=== PATIENT | female | born 1985 | race Two or more races ===

== ENCOUNTER 2025-01-19 08:59 | Emergency (ER) | payer MEDICAID, SELFPAY ==
[2025-01-19 09:57] VITALS: BP 134/83; PULSE 89; RESP 18; TEMP 36.7; O2SAT 99; BMI 42.1
--- NOTE | 2025-01-19 09:59 | XR_ITS ---
Examination: OB Transvaginal ultrasound of the pelvis, complete Technique: Transvaginal sonographic images pelvis performed using faith scale imaging Exam date and time: January 19, 2025 at 1027 hrs. Indications: Vaginal bleeding beginning 4 days ago Findings: Uterus 12.0 x 6.2 x 7.1 cm Intrauterine gestational sac 1.3 cm corresponds to 6 weeks 1 day gestational age No pole No cardiac activity Right ovary 3.2 x 2.4 x 3.2 cm arterial flow 10 mm follicle Left ovary obscured by bowel gas Impression: Empty intrauterine gestational sac 1.3 cm corresponds to 6 weeks 1 day gestational age No pole, no cardiac activity Recommend short-term follow-up transvaginal pelvic sonography to exclude embryonic demise.
[2025-01-19 11:21] LABS: Basophils # (Auto) 0.1 Thou/mm3 (0.0-0.2); Basophils % (Auto) 1 % (0-2.5); Eosinophils # (Auto) 0.1 Thou/mm3 (0.0-0.5); Eosinophils % (Auto) 1 % (0-10); Hematocrit 43.4 % (36.0-46.0); Hemoglobin 14.4 g/dL (12.0-16.0); Immature Granulocytes % (Auto) 0 % (0-0); Immature Granulocytes Auto 0.05 Thou/mm3 (0.00-0.00); Lymphocytes # (Auto) 2.9 Thou/mm3 (1.0-4.8); Lymphocytes % (Auto) 24 % (10-50); Mean Corpuscular HGB Conc 33.2 g/dl (31.0-37.0); Mean Corpuscular Hemoglobin 28.2 pg (25.0-35.0); Mean Corpuscular Volume 85 fL (80-100); Monocytes # (Auto) 0.6 Thou/mm3 (0.0-0.8); Monocytes % (Auto) 5 % (0-12); Neutrophils # (Auto) 8.1 Thou/mm3 (1.8-7.7); Neutrophils % (Auto) 68 % (37-80); Nucleated Red Blood Cell % 0 /100 WBC (0); Platelet Count 414 Thou/mm3 (140-440); RDW Standard Deviation 44.1 fL (36.4-46.3); White Blood Count 11.9 Thou/mm3 (3.6-11.0)
[2025-01-19 11:53] LABS: Alanine Aminotransferase 24 U/L (10-49); Albumin, Serum 4.5 gm/dL (3.5-5.0); Albumin/Globulin Ratio 1.2 (1.2-2.2); Alkaline Phosphatase 81 U/L (46-116); Anion Gap 10 (7-16); Aspartate Amino Transferase 19 U/L (0-34); BUN/Creatinine Ratio 14 Ratio (12-20); Beta HCG,Quantitative 3186 mIU/mL (<5.0); Bilirubin,Total 0.8 mg/dL (0.3-1.2); Blood Urea Nitrogen 10 mg/dL (9-23); Calcium 9.9 mg/dL (8.3-10.6); Calcium (Corrected) 9.9 mg/dL (8.5-10.1); Carbon Dioxide 25.2 mMol/L (20.0-31.0); Chloride 102 mMol/L (98-107); Creatinine (Component) 0.7 mg/dL (0.6-1.3); Estimated Creatinine Clearance 131.9 mL/min (>60); Globulin 3.7 gm/dL (2.3-3.5); Glucose 207 mg/dL (74-106); Osmolality,Calculated 278 (275-295); Potassium 3.9 mMol/L (3.4-5.1); Sodium 137 mMol/L (136-145); Total Protein 8.2 gm/dL (5.7-8.2); eGFR > 60 See Note
--- NOTE | 2025-01-19 16:41 | PD.EDVAGBL ---
ED OB Contraction Preg RMI/HPI General Chief complaint: Vaginal Bleeding Stated complaint: MISCARRIAGE FOLLOW UP Time Seen by Provider: 01/19/25 09:29 Arrival date/time: 01/19/25 08:59 39-year-old female G7, presents to the emergency department today complains of vaginal spotting and pelvic pain patient reports she has been to the ER at [facility] patient reports that she has had 2 hCGs which are trending downward patient reports that she came here for further evaluation patient reports that she has no CLERK OF SUPERIOR COURT Limitations: no limitations Related Data Home Medications ?Medication ?Instructions ?Recorded ?Confirmed vits no.124-ferrous fum 1 tab PO QDAY 08/21/20 08/30/20 27 mg iron-folic acid 800 mcg tablet ( Vitamin) Previous Rx's ?Medication ?Instructions ?Recorded hydrocodone 5 mg-acetaminophen 325 1 tab PO Q8H PRN pain #15 tabs 01/06/23 mg tablet Allergies Allergy/AdvReac Type Severity Reaction Status Date / Time No Known Allergies Allergy Verified 04/06/22 15:48 Review of Systems Review of Systems Systems Reviewed: All systems reviewed, normal except as documented Constitutional Constitutional: Reports system reviewed and no additional complaints, except as documented, Denies fever(s) and Denies headache(s) Eyes Eyes: Reports system reviewed and no additional complaints, except as documented and Denies blurry vision ENT Ears, Nose, Mouth, and Throat: Reports system reviewed and no additional complaints, except as documented, Denies headache(s), Denies nasal congestion and Denies nasal discharge Cardiovascular Cardiovascular: Reports system reviewed and no additional complaints, except as documented, Denies chest pain and Denies dyspnea Respiratory Respiratory: Reports system reviewed and no additional complaints, except as documented, Denies chest congestion, Denies cough and Denies dyspnea Gastrointestinal Gastrointestinal: Reports system reviewed and no additional complaints, except as documented and Denies abdominal pain Genitourinary Genitourinary: Reports system reviewed and no additional complaints, except as documented and Reports abnormal vaginal bleeding Integumentary/Breasts Skin/Breast: Reports system reviewed and no additional complaints, except as documented and Denies rash Neurologic Neurologic: Reports system reviewed and no additional complaints, except as documented, Reports as per HPI and Denies headache(s) Past Medical History Past Medical History NEUROLOGIC: Negative Neurological Disorders or Seizures CARDIAC: Negative Cardiac Disorders or Congestive Heart Failure RESPIRATORY: Negative Chronic Obstructive Pulmonary Disease (COPD) or Asthma GASTROINTESTINAL: Negative Gastrointestinal Disorders, Hepatitis or Colorectal Cancer GENITOURINARY: Negative Genitourinary Disorders, Renal Disease or Prostate Cancer REPRODUCTIVE: Negative Breast Cancer or Testicular Cancer MUSCULOSKELETAL: Negative Musculoskeletal Disorders or Bone Cancer ENDOCRINE: Positive Diabetes Mellitus Type 2; Negative Endocrine Disorders, Diabetes Mellitus Type 1, Hypoglycemia, Hamburg's Syndrome, Andrew's Disease, Hyperthyroidism, Hypothyroidism, Parathyroid Disease, Pituitary Disease, Systemic Lupus Erythematosus, Syndrome of Inappropriate Antidiuretic Hormone (SIADH), Adrenal Disease or Graves' Disease HEMATOLOGIC: Negative Blood Disorders or Anemia PSYCHO/SOCIAL: Positive Depression and Anxiety; Negative Depression OTHER HISTORY: Positive Hospitalization and Chicken Pox; Negative Autoimmune Disease, Down Syndrome, Developmental Delay, Shingles, Falls, Blood Transfusions, Blood Transfusion Reaction, Anesthesia Reactions, Organ Transplant, Chemotherapy, Radiation Therapy, Hyperbaric Therapy, MRSA, VRSA, Vancomycin-Resistant Enterococci, Human Immunodeficiency Virus (HIV), Measles, Mumps, Rubella (Yi Measles), Pertussis, Clostridium Difficile, Cancer, Breast Cancer, Cervical Cancer, Colorectal Cancer, Lung Cancer, Ovarian Cancer, Prostate Cancer or Testicular Cancer Family History FAMILY HISTORY: Positive Family Respiratory Disorders and Family Cardiac Disorders; Negative Family Psychiatric Problems, Family Gastrointestinal Problems, Family Cancer, Family Surgery or Family Anesthesia Reaction Surgical History SURGICAL: Positive Section; Negative Organ Transplant Social History SMOKING STATUS: Never smoker SECOND HAND EXPOSURE: No ED Exam General Limitations: Present no limitations General appearance: Present alert and in no apparent distress Head Head exam: Present atraumatic Eye Eye exam: Present normal appearance, PERRL and EOMI ENT ENT exam: Present normal exam, normal oropharynx and mucous membranes moist Neck Neck exam: Present normal inspection, full ROM and trachea midline Chest Chest inspection: Present normal inspection and symmetric chest wall rise Respiratory Respiratory exam: Present normal lung sounds bilaterally Cardiovascular Cardiovascular exam: Present regular rate, normal rhythm and normal heart sounds Abdominal Exam Abdominal exam: Present soft and normal bowel sounds; Absent distention, tenderness, guarding, rebound or rigidity Extremities Exam Extremities exam: Present normal inspection and full ROM Back Exam Back exam: Present normal inspection and full ROM Neurological Exam Neurological exam: Present alert, oriented X3 and CN II-XII intact Psychiatric Psychiatric exam: Present normal affect and normal mood Skin Skin exam: Present warm, dry, intact and normal color Course Quality Measures none Orders Category Date Time Status US OB transvaginal Stat Exams 01/19/25 09:59 Completed ABO/RH Type Stat Lab 01/19/25 10:48 Completed Beta HCG,Quantitative Stat Lab 01/19/25 10:48 Completed CBC Stat Lab 01/19/25 10:48 Completed Comprehensive Metabolic Panel Stat Lab 01/19/25 10:48 Completed Vital Signs Vital signs: Vital Signs Temperature 98.0 F 01/19/25 09:57 Pulse Rate 89 01/19/25 09:57 Respiratory Rate 18 01/19/25 09:57 Blood Pressure 134/83 H 01/19/25 09:57 Pulse Oximetry (%) 99 01/19/25 09:57 Oxygen Delivery Method Room Air 01/19/25 09:57 Vaginal Bleeding MDM Narrative MDM Narrative: 39-year-old female G7, presents to the emergency department today complains of vaginal spotting and pelvic pain patient reports she has been to the ER at [facility] patient reports that she has had 2 hCGs which are trending downward patient reports that she came here for further evaluation patient reports that she has no CLERK OF SUPERIOR COURT On exam patient hemodynamically stable with no significant heavy bleeding at this time Lab work as well as ultrasound obtained I do suspect patient is having a miscarriage based on the patient's hCG levels which are continuing to trend downward Consultation: I spoke with Dr. Lin who states he will see the patient in office tomorrow morning For emergent concerns patient instructed to return immediately Patient data External records reviewed:: [facility] previous records Clinical information provided by:: patient Social determinants that could affect healthcare access:: none Patient has the following chronic illnesses:: None How is presenting disease/condition affected by chronic disease/condition?: no chronic disease Evaluation data The following diagnostics were reviewed and interpreted by me:: lab results and radiology exam(s) Lab and/or radiology exams considered but not ordered:: Labs radiology obtain Interpretation Summary: Reviewed by me Medications / Prescriptions Medications or Prescriptions considered but not ordered:: Given no meds Medication administrations:: Given no meds Consultations Consultation(s) initiated? (list below): Yes Consultation #1 (Physician, Specialty, Details): Dr. Lin Diagnosis Vaginal Bleeding Differential Diagnosis: missed and threatened Most likely diagnosis given after review of the tests above:: Incomplete Admission Indicated Admission indicated?: not indicated Admission Request Was there a request for admission?: No Disposition Plan Disposition Plan: Discharge Discharge Attestation Discharge Attestation: The patient and all family members were given an opportunity to ask questions and understood the discharge instructions. Discharge instructions specifically effects, indications for sooner follow up or return to the emergency department, and the expected course of current diagnosis. Patient condition: Stable Discharge Plan Plan Patient Disposition: HOME (Self Care) Disposition Comment: Stable Prescriptions/Referrals Prescriptions/Med Rec: No Action Vitamin 27 mg iron- 800 mcg Tablet 1 tab PO QDAY hydrocodone-acetaminophen 5-325 mg tablet 1 tab PO Q8H MDD 3 PRN (Reason: pain) Qty: 15 0RF Referrals: Perez Gomez MD [Primary Care Provider] - In 1 week Problem List Clinical Impression: , threatened Patient/Caregiver Discharge Instructions Education Materials: ED Possible Miscarriage ... Additional Instructions: Please follow-up with Dr. Lin as discussed please go to the front desk assistant at the [facility] Department inform them that you already have an appointment with Dr. Lin 01/20 @ 9am Print Language: Chinese Stand Alone Forms: Shelia Award Info., Work/School Release, Patient Portal Info Letter PA/CONSULTANT NURSE Supervising Physician PA/CONSULTANT NURSE Supervising Physician: dr carroll
== END 2025-01-19 12:51 | disposition home or self-care (01) ==
PROVIDERS: Nurse Practitioner Primary Care; Emergency Provider Emergency Medicine; PCP Family Medicine
DX: O20.0 Threatened abortion (principal)
CPT/HCPCS: 36415; 76817; 80053; 84702; 85025; 86900; 86901; 99284

== ENCOUNTER 2025-01-20 09:05 | Outpatient (AMB) | payer BC, MEDICAID, SELFPAY ==
[2025-01-20 09:18] VITALS: BP 122/84; PULSE 92; RESP 18; TEMP 36.6; O2SAT 95; BMI 42.3
--- NOTE | 2025-01-20 09:18 | OBCLNT_ITS ---
Vital Signs 01/20/25 09:18 Height 1.63 m Height Method Stated Weight 112.264 kg Weight Measurement Method Standing Scale BMI 42.3 BP 122/84 Blood Pressure Source Automatic Cuff Blood Pressure Location Left Upper Arm Position Sitting Respiration 18 Pulse 92 Pulse Source Monitor Temp 97.8 F Temp Source Oral Pulse Oximetry (%) 95 Oxygen Delivery Method Room Air Allergies/Home Meds Allergies & Medications Allergies No Known Allergies Allergy (Verified 01/20/25 09:20) Medication Reconciliation vits no.124-ferrous fum 27 mg iron-folic acid 800 mcg tablet ( Vitamin) 1 tab PO QDAY 08/21/20 [History Confirmed 01/20/25] Intake Visit Data Collection New Patient or Established: Established Patient (seen at [facility] within 3 years) Reason for Visit:: EMERGENCY ROOM FOLLOW UP Seen by Clinical Staff ONLY (RN/MA): No Regulator Inspector Required: No Do You Feel Safe at Home: Yes Authorities Contacted: N/A PCP or OBGYN visit in last 3 months: Yes Hx Now: Yes Are you currently on any form of Control: No Last menstrual period: 09/26/24 Pain Present Currently: No Pain Scale Used: Inman-Perkins/Numerical Pain scale:: 0 Smoking Status Smoking Status: Never smoker Questionnaires Covid-19 Vaccine Questionnaire Has patient been vacinated for Covid-19 Have you been vacinated for Covid-19: Yes Date of last Covid Vaccine or Booster?: 11/04/22 PHQ-9 PHQ-2 Over the last 2 weeks, how often have you been bothered by any of the following problems? 1. Little interest or pleasure in doing things: more than half the days 2. Feeling down, depressed, or hopeless: more than half the days Total score: 4 PHQ-9 3. Trouble falling or staying asleep, or sleeping too much: Nearly every day 4. Feeling tired or having little energy: More than one-half days 5. Poor appetite or overeating: More than one-half days 6. Feeling bad about yourself - or that you are a failure or have let yourself or your family down: More than one-half days 7. Trouble concentrating on things, such as reading the newspaper or watching television: Not at all 8. Moving or speaking so slowly that other people could have noticed? - Or the opposite - being so fidgety or restless that you have been moving around a lot more than usual: not at all 9. Thoughts that you would be better off or of hurting yourself in some way: Several days Total score: 14.0 If you checked off any problems, how difficult have these problems made it for you to do your work, take care of things at home, or get along with other people?: extremely difficult Source: Developed by Drs. Jimmy Dukes, Marialuisa Cody, Felix Valentin and colleagues, with an educational charles from [employer]. Depression screen completed yes Social History Living Situation History Marital Status: Lives With: Family Housing: Apartment Tobacco History Smoking Status: Never smoker Second Hand Smoke Exposure: No Alcohol History Alcohol Intake: Never Substance Use History Substance Use: NO Domestic Abuse History Do You Feel Safe at Home: Yes Past Medical History Past Medical History Have you ever been diagnosed with any of the following: Neurological Problems Seizures: No Cardiology Problems Congestive Heart Failure: No Respiratory Problems Chronic Obstructive Pulmonary Disease (COPD): No Asthma: No Stomache/Intestinal Problems Hepatitis: No Colorectal Cancer: No Genital/Urinary Problems Chronic Kidney Disease: No Renal Disease: No Kidney Stones: No Prostate Cancer: No Reproductive Problems Breast Cancer: No Endometriosis: No Fibroids: No Genital Herpes: No Gonorrhea: No Pelvic Inflammatory Disease: No Testicular Cancer: No Musculoskeletal Problems Bone Cancer: No Endocrine Problems Diabetes Mellitus Type 1: No Diabetes Mellitus Type 2: No Hypoglycemia: No [place]'s Syndrome: No Andrew's Disease: No Hyperthyroidism: No Hypothyroidism: No Parathyroid Disease: No Pituitary Disease: No Systemic Lupus Erythematosus: No Syndrome of Inappropriate Antidiuretic Hormone: No Adrenal Disease: No Graves' Disease: No Blood Problems Anemia: No Leukemia: No Hemophilia: No Thalassemia: No Sickle Cell Disease: No Clotting Problems: No Psychologic Problems Schizophrenia: No Recreational Drug Use: No Bipolar Disorder: No Depression: Yes Anxiety: Yes Behavior Problems: No Self-Mutilation: No Attention Deficit Disorder: No Attention Deficit Hyperactivity Disorder: No Depression: No Post Traumatic Stress Disorder: No Eating Disorder: No Other Problems Hospitalization: Yes Down Syndrome: No Developmental Delay: No Shingles: No Falls: No Blood Transfusions: No Blood Transfusion Reaction: No Anesthesia Reactions: No Organ Transplant: No Chemotherapy: No Radiation Therapy: No Hyperbaric Therapy: No MRSA: No VRSA: No Vancomycin-Resistant Enterococci: No Human Immunodeficiency Virus (HIV): No Chicken Pox: Yes Measles: No Mumps: No Rubella (French Measles): No Pertussis: No Clostridium Difficile: No Cancer: No Cervical Cancer: No Lung Cancer: No Ovarian Cancer: No History of Present Illness HPI Narrative Patient presents with a history of early loss, described as a blighted ovum. She initially sought care on January 06, 2025, at [facility] for abdominal pain, diagnosed as a UTI, and was treated with Macrobid and Keflex for 7 days. Prior to this, she was treated for a UTI and yeast infection at [facility] with a topical cream. As symptoms persisted, she went to [facility] on January 06, where blood work revealed an HCG level of 6000, and an ultrasound showed no parts due to early gestation. On January 15, 2025, she returned due to spotting, which progressed to bright red bleeding in the afternoon. Repeat blood work showed a drop in HCG to 3000, and ultrasound again revealed no parts. Patient reports no current bleeding. Her last menstrual period was in September 2024, with spotting in October 2024 and amenorrhea in November 2024. She had been using ovulation strips but was unable to determine ovulation timing. Patient mentions previous use of Clomid for conception but no subsequent interventions post-positive test. She is not actively trying to become but is not preventing it, expressing concerns about the mental health effects of control. Her is in the process of getting a vasectomy. OB Initial Visit Menstrual History Menstrual reliability: definite Flow: normal Menstrual regularity: regular Monthly: Yes Age at menarche: 15 On control pills at conception: No Date of positive home test: 12/15/24 Associated symptoms (LMP): Reports nausea, breast tenderness, bloating and other (SPOTTING) Infection History & Risk Evaluation Patient or partner has history of Genital Herpes: No Varicella/chicken pox status: immunized Genetic Screening & History Genetic Screening/Teratology Counseling - Includes patient, baby's father, or anyone in either family with: 1. Patient's age 35 years or older as of estimated date of delivery: Yes 2. Thalassemia (Arabic, Latvian, Mediterranean, or Background); MCV less than 80: No 3. Neural Tube Defect (Meningomyelocele, Spina Bifida, or Anencephaly): No 4. Congenital Heart Defect: No 5. Down Syndrome: No 6. Ramakrishna-Sachs (Ashkenazi Pentecostalism, Cajun, [place]an [place]): No 7. Favian Disease (Ashkenazi Pentecostalism): No 8. Familial Dysautonomia (Ashkenazi Pentecostalism): No 9. Sickle Cell Disease or Trait (): No 10. Hemophilia or other blood disorders: No 11. Muscular Dystrophy: No 12. Cystic Fibrosis: No 13. [place]'s Chorea: No 14. Mental Retardation/Autism: No 15. Other inherited genetic or chromosomal disorder: No 16. Maternal Metabolic Disorder (EG,TYPE 1 Diabetes, PKU): No 17. Patient or baby's father had a child with defects not listed above: No 18. Recurrent loss or a stillbirth: No 19. Medications (including supplements, vitamins, herbs or otc drugs)/illicit/r ecreational drugs/alcohol since last menstrual period: No 20. Any other: No Infection History 1. Live with someone with TB or exposed to TB: No 2. Rash or viral illness since last menstrual period: No 3. Hepatitis B,C: No Other (see comments) Source: [employer] Review of Systems Review of Systems Systems Reviewed: All systems reviewed, normal except as documented Gastrointestinal Gastrointestinal: Reports bloating and Reports nausea Exam General Limitations: no limitations General Appearance: alert, in no apparent distress, comfortable, cooperative, healthy appearing, well developed and well groomed Head Head exam: atraumatic, normocephalic and normal inspection Eye Eye exam: Present normal appearance, PERRL and EOMI ENT ENT exam: Present normal exam, normal oropharynx and mucous membranes moist Neck Neck exam: Present normal inspection, full ROM and trachea midline Chest Chest inspection: Present normal inspection and symmetric chest wall rise Resp Respiratory exam: Present normal lung sounds bilaterally Card Cardiovascular exam: Present regular rate, normal rhythm and normal heart sounds Abdominal Abdominal exam: Present soft and normal bowel sounds External exam: Present other (Deferred by patient) Extremities Extremities exam: Present normal inspection and full ROM Back Back exam: Present normal inspection and full ROM Neuro Neurological exam: Present alert, oriented X3 and CN II-XII intact Psych Psychiatric exam: Present normal affect and normal mood Skin Skin exam: Present warm, dry, intact and normal color Assessment & Plan Diagnosis / Problem List (1) , threatened: Status: Inactive Plan: Early Loss (Blighted Ovum): - Positive test with declining HCG levels. - Initial HCG on Jan 06 was 6000, dropped to 3000 on Jan 15. - No parts visualized on ultrasound. - Consistent with very early loss (blighted ovum). - Patient not bleeding, emotionally affected. - Repeat serum HCG after 2 weeks. - Expect regular menstrual period within the next week. - 2-week medical leave provided. - Follow-up appointment scheduled in 2 weeks. - Lab order placed for blood test. (2) General counseling and advice for contraceptive management: Status: Acute Plan: - Not actively trying to conceive, not using contraception. - Mental health concerns with hormonal control. - in process of obtaining vasectomy. - Patient declined non-hormonal contraceptive options. - Advised to monitor ovulation using an naeem. - Recommended avoiding intercourse 48 hours before and after ovulation. - Discussed potential for high-dose folic acid and progesterone supplementation for future pregnancies. - Counseled on importance of weight loss before future attempts. (3) Recurrent UTI: Status: Acute Plan: - Treated for UTI on Jan 06 at [facility]. - Prescribed antibiotics for 7 days. - No current active management required. Office Procedures OB Clinic LOC & Office Proc's Nursing/Assessment Patient Status: Initial/New Patient OB Clinic Nursing Assessment: Medication Reconciliation, Update PMH in EMR and Vital Signs OB Clinic Coordination of Care: Complex Care and Chronic Disease 1-5, Education Complex Pt/Fam, Lab and Imaging orders and Staff clarify orders New Patient Charge New Patient Point Assignment: 1099 New Patient Point Charge: UTILITY BILL COMPLAINTS INVESTIGATOR Level 3 ([id number])
== END 2025-01-20 09:53 | disposition home or self-care (01) ==
LOC: HODSOBC 09:05
PROVIDERS: PCP Family Medicine; Supervising Provider Obstetrics & Gynecology; Visit Provider Obstetrics & Gynecology
DX: Z30.09 Encounter for other general counseling and advice on contraception (principal)
CPT/HCPCS: 99203; 99213; G0463

== ENCOUNTER → 2025-01-30 | Outpatient (CLI) | payer BC, SELFPAY ==
[2025-01-30 17:04] LABS: Beta HCG,Quantitative 15 mIU/mL (<5.0)
== END | disposition home or self-care (01) ==
LOC: COPL 15:32
PROVIDERS: Referring Provider Obstetrics & Gynecology; Visit Provider Obstetrics & Gynecology
DX: O20.0 Threatened abortion (principal)
CPT/HCPCS: 36415; 84702

== ENCOUNTER 2025-02-02 08:53 | Outpatient (AMB) | payer BC, MEDICAID, SELFPAY ==
[2025-02-02 09:04] VITALS: BP 109/76; PULSE 81; RESP 16; TEMP 36.1; O2SAT 99; BMI 42.3
--- NOTE | 2025-02-02 09:04 | AMB.GYNCLNOT ---
Vital Signs 02/02/25 09:04 Height 1.63 m Height Method Stated Weight 112.548 kg Weight Measurement Method Standing Scale BMI 42.3 BP 109/76 Blood Pressure Source Automatic Cuff Blood Pressure Location Left Upper Arm Position Supine Respiration 16 Pulse 81 Pulse Source Monitor Temp 97.0 F Temp Source Oral Pulse Oximetry (%) 99 Oxygen Delivery Method Room Air Allergies/Home Meds Allergies & Medications Allergies No Known Allergies Allergy (Verified 02/02/25 09:05) Medication Reconciliation vits no.124-ferrous fum 27 mg iron-folic acid 800 mcg tablet ( Vitamin) 1 tab PO QDAY 08/21/20 [History Confirmed 02/02/25] levofloxacin 500 mg tablet 500 mg PO QDAY 7 days #7 tabs 02/02/25 [Rx] Intake Visit Data Collection New Patient or Established: Established Patient (seen at [facility] within 3 years) Reason for Visit:: 2-week follow-up after ER visit for suspected incomplete , 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 1. Little interest or pleasure in doing things: more than half the days 2. Feeling down, depressed, or hopeless: not at all Total score: 2 PHQ-9 3. Trouble falling or staying asleep, or sleeping too much: Several days 4. Feeling tired or having little energy: Several days 5. Poor appetite or overeating: Several days 6. Feeling bad about yourself - or that you are a failure or have let yourself or your family down: Several days 7. Trouble concentrating on things, such as reading the newspaper or watching television: Several days 8. Moving or speaking so slowly that other people could have noticed? - Or the opposite - being so fidgety or restless that you have been moving around a lot more than usual: not at all 9. Thoughts that you would be better off or of hurting yourself in some way: Several days Total score: 8.0 Source: Developed by Drs. Jimmy Dukes, Marialuisa Cody, Felix Valentin and colleagues, with an educational charles from [employer]. Depression screen completed yes Social History Living Situation History Lives With: Family Housing: Apartment Tobacco History Smoking Status: Never smoker Second Hand Smoke Exposure: No Alcohol History Alcohol Intake: Never Substance Use History Substance Use: NO Domestic Abuse History Do You Feel Safe at Home: Yes Past Medical History Past Medical History Have you ever been diagnosed with any of the following: Neurological Problems Seizures: No Cardiology Problems Congestive Heart Failure: No Respiratory Problems Chronic Obstructive Pulmonary Disease (COPD): No Asthma: No Stomache/Intestinal Problems Hepatitis: No Colorectal Cancer: No Genital/Urinary Problems Renal Disease: No Kidney Stones: No Prostate Cancer: No Reproductive Problems Breast Cancer: No Endometriosis: No Fibroids: No Genital Herpes: No Gonorrhea: No Pelvic Inflammatory Disease: No Testicular Cancer: No Musculoskeletal Problems Bone Cancer: No Endocrine Problems Diabetes Mellitus Type 1: No Diabetes Mellitus Type 2: No Hypoglycemia: No Rachell's Syndrome: No Howard's Disease: No Hyperthyroidism: No Hypothyroidism: No Parathyroid Disease: No Pituitary Disease: No Systemic Lupus Erythematosus: No Syndrome of Inappropriate Antidiuretic Hormone: No Adrenal Disease: No Graves' Disease: No Blood Problems Anemia: No Leukemia: No Hemophilia: No Thalassemia: No Sickle Cell Disease: No Clotting Problems: No Psychologic Problems Schizophrenia: No Recreational Drug Use: No Bipolar Disorder: No Depression: Yes Anxiety: Yes Behavior Problems: No Self-Mutilation: No Attention Deficit Disorder: No Attention Deficit Hyperactivity Disorder: No Depression: No Post Traumatic Stress Disorder: No Eating Disorder: No Other Problems Hospitalization: Yes Down Syndrome: No Developmental Delay: No Shingles: No Falls: No Blood Transfusions: No Blood Transfusion Reaction: No Anesthesia Reactions: No Organ Transplant: No Chemotherapy: No Radiation Therapy: No Hyperbaric Therapy: No MRSA: No VRSA: No Vancomycin-Resistant Enterococci: No Human Immunodeficiency Virus (HIV): No Chicken Pox: Yes Measles: No Mumps: No Rubella ([place] Measles): No Pertussis: No Clostridium Difficile: No Cancer: No Cervical Cancer: No Lung Cancer: No Ovarian Cancer: No History of Present Illness HPI Frantz Teague presents for a 2-week follow-up after an ER visit for a suspected incomplete . She had a dropping serum HCG with values of 6000 on January 06, 3000 on January 15 prior to being seen here, and 15 on January 30, 2025, which is considered negative. She passed a good-sized sac at home three days after her last visit. The patient completed antibiotics for a UTI but experienced symptoms during the miscarriage, which resolved 3-4 days ago. 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 Review of Systems Review of Systems Systems Reviewed: All systems reviewed, normal except as documented Exam General Limitations: no limitations General Appearance: alert, in no apparent distress, comfortable, cooperative, healthy appearing, well developed and well groomed Head Head exam: atraumatic, normocephalic and normal inspection Neck Neck exam: Present normal inspection, full ROM and trachea midline Chest Chest inspection: Present normal inspection and symmetric chest wall rise Abdominal Abdominal exam: Present soft and normal bowel sounds Extremities Extremities exam: Present normal inspection and full ROM Back Back exam: Present normal inspection and full ROM Psych Psychiatric exam: Present normal affect and normal mood Skin Skin exam: Present warm, dry, intact and normal color Assessment & Plan Diagnosis / Problem List (1) Recurrent loss: Status: Acute Plan: Patient presented for 2-week follow-up after ER visit for suspected incomplete . Serum HCG levels showed a declining trend: 6000 on January 06, 3000 on January 15 prior to this visit, and 15 on January 30, 2025. The latest HCG level of 15 is considered negative. Patient reported passing a good-sized sac at home three days after her last visit, indicating successful completion of the miscarriage process. - Monitor for any signs of complications - Advise patient that ovulation typically returns 6-8 weeks post-miscarriage - Recommend non-hormonal contraception or consider tubal ligation if 's vasectomy is delayed - If planning , advise use of ovulation test kits - If occurs, schedule early test and initiate progesterone therapy - Prescribe only folic acid supplementation, avoiding vitamins and iron (2) Recurrent UTI: Status: Acute Plan: Patient completed a course of antibiotics for UTI but experienced symptoms during the miscarriage. Symptoms resolved 3-4 days ago. - Provide prescription for stronger antibiotic if symptoms return - Send prescription to patient's usual pharmacy (3) General counseling and advice for contraceptive management: Status: Acute (4) Previous delivery affecting : Status: Acute Plan Medical Decision Making Zahida Arreola presents for a 2-week follow-up after an ER visit for a suspected incomplete , with concerns about recurrent miscarriages and severe anxiety and depression. The patient's serum HCG levels have been closely monitored, showing a consistent decline from 6000 on January 06 to 15 on January 30, 2025, which is considered negative. This trend, along with the patient's report of passing a good-sized sac at home, supports the diagnosis of a completed miscarriage. The patient's recent UTI symptoms, which resolved 3-4 days ago, were considered in the differential diagnosis. Given the negative HCG and resolution of symptoms, no further intervention for the miscarriage is deemed necessary at this time. The possibility of recurrent miscarriages was addressed, with consideration given to future management, including early progesterone supplementation if occurs. Additional Assessment Preventive Medicine: Patient Counseling: Sexual Health, Contraception, and Family Planning Your sexual and reproductive health is important, and there are several steps you can take to protect yourself and make informed decisions. Safe Sex and STD Prevention: ? Condom Use: Consistent use of condoms during vaginal, anal, and oral sex reduces the risk of sexually transmitted diseases (STDs), including HIV. ? Regular Testing: Routine STD testing is important, especially if you or your partner have multiple partners. Early detection helps prevent complications. ? Open Communication: Discuss your sexual health and testing history with your partner(s) to make safer choices together. Contraceptive Options: ? Barrier Methods: Condoms (male and female) provide protection against both and STDs. ? Hormonal Methods: control pills, patches, vaginal rings, injections, and implants prevent when used consistently and correctly. ? Long-Acting Reversible Contraception (LARC): IUDs (hormonal and non-hormonal) and implants provide long-term, highly effective protection. ? Permanent Contraception: Options like tubal ligation or vasectomy are available for those who do not wish to have more children. Emergency Contraception (EC): ? Emergency contraception (e.g., Plan B or Blanca) can be used after unprotected sex or contraceptive failure and is most effective when taken within 72 hours (up to 5 days for some options). ? EC does not protect against STDs, so follow up with testing if exposure is a concern. Family Planning and Pre- Health: ? If you are planning to become , begin taking folic acid 1 mg daily to reduce the risk of neural tube defects. ? Avoid teratogenic drugs (medications that can harm a developing baby) and discuss any prescription medications with your healthcare provider before . ? It is recommended to space pregnancies at least 18 months apart to support your health and reduce -related risks. Office Procedures OB Clinic LOC & Office Proc's Nursing/Assessment Patient Status: Established Patient OB Clinic Nursing Assessment: BP Monitoring, Medication Reconciliation, Update PMH in EMR and Vital Signs OB Clinic Coordination of Care: Consent,records obtained, informed consent, Education Simp Pt/Fam, Results/Orders obtained and Staff clarify orders Established Patient Charge Established Patient Point Assignment: 80 Established Patient Point Charge: EP Level 3 (80-115)
== END 2025-02-02 09:11 | disposition home or self-care (01) ==
LOC: HODSOBC 08:53
PROVIDERS: PCP Family Medicine; Referring Provider Family Medicine; Supervising Provider Obstetrics & Gynecology; Visit Provider Obstetrics & Gynecology
DX: Z09 Encounter for follow-up examination after completed treatment for conditions other than malignant neoplasm (principal); N96 Recurrent pregnancy loss; N39.0 Urinary tract infection, site not specified; Z30.09 Encounter for other general counseling and advice on contraception
CPT/HCPCS: 99213; G0463